=== PATIENT | male | born 1930 | race Hispanic/Latino ===

== ENCOUNTER 2018-01-21 15:05 | Inpatient (IN) | payer MEDICARE, OTHER ==
[~2018-01-21] VITALS: Ht 170.2 cm; Wt 71.2 kg
[2018-01-21] MEDS ORDERED: MULTIVITAMINS- 12 INJECTION 10 ML, FOLIC ACID MDV 5 MG, THIAMINE HCL INJ 100 MG in SODI... IV ONE (15:15)
[2018-01-21] MEDS ORDERED: DIATRIZOATE MEGL/DIATRIZOA SOD 30 ML BTL PO ONE (15:39)
[2018-01-21 16:07] LABS: BASOPHILS % 0.5 % (0.0-1.0); EOSINOPHILS # (AUTO) 0.1 (0.0-0.4); HEMATOCRIT 39.1 % (38.2-49.6); HEMOGLOBIN 13.5 g/dL (14.0-18.0); LYMPHOCYTES # (AUTO) 1.5 (1.0-3.2); LYMPHOCYTES % 18.3 % (18.0-39.1); MEAN CORPUSCULAR HGB CONC 34.5 g/dL (31-35); MEAN CORPUSCULAR VOLUME 89.7 fL (81-99); MONOCYTES # (AUTO) 0.8 (0.2-0.8); MONOCYTES % 9.3 % (4.4-11.3); NEUTROPHILS # (AUTO) 5.7 (2.1-6.9); NEUTROPHILS % 70.4 % (38.7-80.0); PLATELET COUNT 191 x10e3/uL (140-360); RED BLOOD COUNT 4.36 x10e6/uL (4.3-5.7); RED CELL DISTRIBUTION WIDTH 13.4 % (11.7-14.4)
[2018-01-21 16:18] LABS: INR 1.23; PROTHROMBIN TIME 14.6 seconds (11.9-14.5)
[2018-01-21 16:19] LABS: PARTIAL THROMBOPLASTIN TIME 33.7 seconds (23.8-35.5)
[2018-01-21 16:29] LABS: ALANINE AMINOTRANSFERASE 10 IU/L (0-55); ALBUMIN 4.1 g/dL (3.5-5.0); ALKALINE PHOSPHATASE 86 IU/L (40-150); AMYLASE 168 U/L (25-125); ANION GAP 15.3 mmol/L (8-16); BLOOD UREA NITROGEN 7 mg/dL (7-26); BUN/CREATININE RATIO 6 (6-25); CALCIUM 9.9 mg/dL (8.4-10.2); CARBON DIOXIDE 24 mmol/L (22-29); CHLORIDE 93 mmol/L (98-107); CREATINE KINASE 40 IU/L (30-200); CREATININE, SERUM 1.12 mg/dL (0.72-1.25); EST GLOMERULAR FILTRATION RATE > 60 ML/MIN (60-); GLUCOSE 112 mg/dL (74-118); LIPASE 314 U/L (8-78); MAGNESIUM 2.1 MG/DL (1.3-2.1); POTASSIUM 3.3 mmol/L (3.5-5.1); SODIUM 129 mmol/L (136-145)
--- NOTE | 2018-01-21 17:09 | Diagnostic Imaging Report ---
EXAMINATION: CHEST SINGLE (PORTABLE) INDICATION: Loss of appetite COMPARISON: None FINDINGS: TUBES and LINES: None. LUNGS: Lungs are well inflated. Lungs are clear. There is no evidence of pneumonia or pulmonary edema. PLEURA: No pleural effusion or pneumothorax. HEART AND MEDIASTINUM: The cardiomediastinal silhouette is unremarkable. BONES AND SOFT TISSUES: No acute osseous lesion. Soft tissues are unremarkable. UPPER ABDOMEN: No free air under the diaphragm. IMPRESSION: No acute thoracic abnormality. Signed by: Dr. Tyrese Anne M.D. on 01/21/2018 5:05 PM
--- NOTE | 2018-01-21 18:09 | Diagnostic Imaging Report ---
EXAM: CT Abdomen and Pelvis WITH contrast INDICATION: Small bowel obstruction, diverticulitis, pancreatitis, mass COMPARISON: None. TECHNIQUE: Abdomen and pelvis were scanned utilizing a multidetector helical scanner from the lung base to the pubic symphysis after administration of IV contrast. Coronal and sagittal reformations were obtained. Routine protocol was performed. Scan was performed when during portal venous phase. IV CONTRAST: 100 mL of Isovue-370 ORAL CONTRAST: Gastrografin RADIATION DOSE: Total DLP: 1000.21 mGy*cm Estimated effective dose: (DLP x 0.015 x size factor) mSv COMPLICATIONS: None FINDINGS: LINES and TUBES: None. LOWER THORAX: Moderate in size sliding hiatal hernia HEPATOBILIARY: No focal hepatic lesions. No biliary ductal dilation. GALLBLADDER: There are stones in the gallbladder. No evidence of wall thickening SPLEEN: No splenomegaly. PANCREAS: No focal masses or ductal dilatation. ADRENALS: No adrenal nodules KIDNEYS/URETERS: Kidneys enhance symmetrically. No hydronephrosis. No cystic or solid mass lesions. No stones. GI TRACT: No abnormal distention, wall thickening, or evidence of bowel obstruction. There are diverticula within the colon without evidence of diverticulitis. There are post surgical changes of appendectomy. PELVIC ORGANS/BLADDER: Unremarkable. LYMPH NODES: No lymphadenopathy. VESSELS: There is moderate atherosclerotic disease in the aorta and major arterial branches. PERITONEUM / RETROPERITONEUM: No free air or fluid. BONES: There are degenerative changes in the lumbar spine. SOFT TISSUES: Unremarkable. IMPRESSION: 1. No evidence of acute intra-abdominal or pelvic abnormality. 2. Evidence of prior appendectomy. 3. Cholelithiasis. Signed by: Dr. Tyrese Anne M.D. on 01/21/2018 6:06 PM
[2018-01-21] MEDS ORDERED: SODIUM CHLORIDE 0.9% 50ML 50 ML ONE (18:13)
[2018-01-21] MEDS ORDERED: IOPAMIDOL 370 MG/ML 200 ML INFUS..BTL INJ ONE (18:13)
[2018-01-21 18:15] LABS: CLARITY,URINE CLEAR (CLEAR); COLOR,URINE STRAW (YELLOW)
[2018-01-21] MEDS ORDERED: ONDANSETRON HCL INJ 2 MG/ML VIAL IV PRN (18:15)
[2018-01-21 18:16] LABS: BILIRUBIN,URINE NEGATIVE (NEGATIVE); KETONES,URINE NEGATIVE (NEGATIVE); LEUKOCYTE ESTERASE ,URINE NEGATIVE (NEGATIVE); NITRITE,URINE NEGATIVE (NEGATIVE); PROTEIN,URINE DIPSTICK NEGATIVE (NEGATIVE); URINE UROBILINOGEN 0.2 mg/dL (0.2 - 1)
[2018-01-21 18:30] LABS: BACTERIA,URINE FEW /HPF; EPITHELIAL CELLS,URINE MODERATE /LPF
[2018-01-21] MEDS: LORAZEPAM INJ 2 MG/ML VIAL IV PRN (19:36)
[2018-01-21] MEDS: MULTIVITAMINS- 12 INJECTION 10 ML in SODIUM CHLORIDE 0.9% 1000ML 1,000 ML IV SCH (19:37)
[2018-01-21 21:00] VITALS: BP 151/85
[2018-01-21] MEDS ORDERED: FAMOTIDINE20 MG PO (21:35)
[2018-01-21] MEDS ORDERED: LEVOTHYROXINE100 MC1 IV (21:35)
[2018-01-21] MEDS ORDERED: QUETIAPINE FUMA25 MG (21:35)
[2018-01-21] MEDS ORDERED: NEXIUM20 MG (21:35)
[2018-01-21 21:36] VITALS: BP 151/85
[2018-01-22 01:54] VITALS: BP 132/76
[2018-01-22] MEDS: LORAZEPAM INJ 2 MG/ML VIAL IV PRN (02:20)
[2018-01-22] MEDS: MULTIVITAMINS- 12 INJECTION 10 ML in SODIUM CHLORIDE 0.9% 1000ML 1,000 ML IV SCH ×3 (04:21→20:51)
[2018-01-22] MEDS ORDERED: MULTIVITAMINS INJECTION ONE (05:23)
[2018-01-22 05:33] VITALS: BP 173/86
[2018-01-22 06:27] LABS: BASOPHILS % 0.5 % (0.0-1.0); EOSINOPHILS # (AUTO) 0.1 (0.0-0.4); EOSINOPHILS % 1.3 % (0.0-6.0); HEMATOCRIT 35.2 % (38.2-49.6); HEMOGLOBIN 12.3 g/dL (14.0-18.0); LYMPHOCYTES # (AUTO) 0.9 (1.0-3.2); LYMPHOCYTES % 15.8 % (18.0-39.1); MEAN CORPUSCULAR HEMOGLOBIN 31.1 pg (28-32); MEAN CORPUSCULAR HGB CONC 34.9 g/dL (31-35); MEAN CORPUSCULAR VOLUME 89.1 fL (81-99); MONOCYTES # (AUTO) 0.6 (0.2-0.8); MONOCYTES % 10.2 % (4.4-11.3); NEUTROPHILS # (AUTO) 3.9 (2.1-6.9); NEUTROPHILS % 71.8 % (38.7-80.0); PLATELET COUNT 152 x10e3/uL (140-360); RED BLOOD COUNT 3.95 x10e6/uL (4.3-5.7); RED CELL DISTRIBUTION WIDTH 13.3 % (11.7-14.4)
[2018-01-22 06:54] LABS: ALANINE AMINOTRANSFERASE 9 IU/L (0-55); ALBUMIN 3.3 g/dL (3.5-5.0); ALKALINE PHOSPHATASE 67 IU/L (40-150); AMYLASE 124 U/L (25-125); ANION GAP 11.9 mmol/L (8-16); BLOOD UREA NITROGEN 6 mg/dL (7-26); BUN/CREATININE RATIO 7 (6-25); CALCIUM 9.1 mg/dL (8.4-10.2); CARBON DIOXIDE 23 mmol/L (22-29); CHLORIDE 100 mmol/L (98-107); CHOL/HDL RATIO 2.1 (3.9-4.7); CHOLESTEROL 161 MD/DL (0-199); CREATININE, SERUM 0.83 mg/dL (0.72-1.25); EST GLOMERULAR FILTRATION RATE > 60 ML/MIN (60-); GLUCOSE 91 mg/dL (74-118); HDL CHOLESTEROL 76 MG/DL (40-60); LDL CHOLESTEROL 75 MG/DL (60-130); LIPASE 187 U/L (8-78); POTASSIUM 3.9 mmol/L (3.5-5.1); SODIUM 131 mmol/L (136-145); TRIGLYCERIDES 49 MG/DL (0-149)
[2018-01-22 07:19] LABS: FREE T4 (FREE THYROXINE) 1.18 ng/dL (0.9-1.8); THYROID STIMULATING HORMONE 1.743 uIU/mL (0.350-4.940)
[2018-01-22 08:01] VITALS: BP 186/90
--- NOTE | 2018-01-22 08:03 | Diagnostic Imaging Report ---
PROCEDURE:GALLBLADDER ULTRASOUND COMPARISON:[facility], CT, CT ABDOMEN/PELVIS W, 01/21/2018, 17:00. INDICATIONS:RUQ PAIN Technique:Orellana scale and color Doppler ultrasound gallbladder FINDINGS: Imaged portions of the inferior vena cava, abdominal aorta, pancreas and right kidney are unremarkable. Right liver span 11.3 cm. Diffusely increased echotexture with a smooth liver margin. Portal vein diameter 0.9 cm; normal flow direction. 1.7 x 1.6 x 2 cm stone at the gallbladder antrum. No pericholecystic fluid. Wall thickness 0.4 cm. Common bile duct diameter 1 cm; no intrahepatic bile duct dilation. No sonographic Frazier sign. CONCLUSION: 1. Cholelithiasis without sonographic evidence of acute cholecystitis. 2. Mild common bile duct dilation may reflect choledocholithiasis in the appropriate context. 3. Hepatic steatosis. Dictated by: Paul Mcmillan M.D. on 01/22/2018 at 8:06 Electronically approved by: Paul Mcmillan M.D. on 01/22/2018 at 8:06
[2018-01-22] MEDS: THIAMINE HCL INJ 100 MG/ML 2ML VIAL IV SCH (09:00)
[2018-01-22] MEDS: LABETALOL HCL 5 MG/ML 20ML VIAL IV PRN ×2 (10:45→12:30)
[2018-01-22] MEDS: PANTOPRAZOLE 40 MG 10ML VIAL IV SCH ×2 (12:30→20:29)
[2018-01-22 14:22] VITALS: BP 150/90
[2018-01-22 15:58] VITALS: BP 197/87
--- NOTE | 2018-01-22 16:29 | Operative Report ---
DATE OF PROCEDURE: January 22, 2018 REFERRING PHYSICIAN: Dr. Gerald Garcia. PROCEDURE PERFORMED: Esophagogastroduodenoscopy with esophageal dilatation over a wire and biopsies. INDICATIONS FOR ESOPHAGOGASTRODUODENOSCOPY: Dysphagia. MEDICATION: Patient was done under MAC. Please see anesthesiologist's note. PROCEDURE: With the patient in the left lateral decubitus position, the flexible fiberoptic Olympus gastroscope was introduced into the esophagus under direct visualization without any difficulty. There was some patchy erythema noted in the distal esophagus. Patient is status post esophagectomy with gastric polyp, and the anastomosis was noted at 27 cm from the incisors. The scope was then advanced into the stomach. Mucosa overlying the antrum and the body revealed some diffuse erythema and low-grade to moderate edema, and biopsies were obtained and sent to stain for H. pylori. Pylorus was intubated with ease, and the scope was advanced all the way to the 2nd portion of the duodenum. The scope was then withdrawn slowly. Mucosa overlying the proximal 2nd portion and the duodenal bulb appeared to be within normal limits. The scope was then withdrawn back into the stomach and retroflexed, and mucosa overlying the fundus appeared to be within normal limits. The scope was then straightened out, and the anastomosis was then dilated to a size 17 Savary over a wire. Patient tolerated the procedure well. IMPRESSION: 1. Distal esophagitis. 2. Status post esophagectomy with gastric polyp. 3. Anastomosis dilated to a size 17 Savary over a wire. 4. Gastritis biopsied. Biopsies sent to stain for H. pylori. PLAN: Follow up histology. Initiate Protonix 40 mg 1 p.o. q.a.m. a.c. Job#: [id number] EV cc:GERALD GARCIA MD
[2018-01-22] MEDS ORDERED: PROPOFOL IV EMULSION 10 MG/ML 50 ML VIAL ONE (17:05)
[2018-01-22] MEDS ORDERED: MIDAZOLAM HCL 2 MG/2 ML VIAL ONE (17:43)
--- NOTE | 2018-01-22 18:59 | History and Physical ---
PRIMARY CARE PHYSICIAN: Dr. Smith CHIEF COMPLAINT: Unable to swallow. HISTORY OF PRESENT ILLNESS: An 87-year-old man with a history of esophageal cancer about 11 years ago, who had a resection of the mass at that time. No chemo was received. The patient continued to drink alcohol about 4 beers a day. Now, having difficulty swallowing. Came to the hospital and underwent EGD and esophageal dilatation by Dr. Villa for his dysphagia. Now, he is feeling better. Found to have distal esophagitis. He is admitted for further evaluation and management. PAST MEDICAL HISTORY: Esophageal cancer about 11 years ago, status post resection without any chemotherapy, hypertension, alcoholism about 4 beers a day. PAST SURGICAL HISTORY: Appendectomy, esophageal mass removal. ALLERGIES: PER ELECTRONIC MEDICAL RECORD. FAMILY HISTORY/SOCIAL HISTORY: Patient is . He has 4 children. Drinks alcohol everyday of about 4 beers a day per his . 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 No cigarettes or illicits. MEDICATIONS: Per electronic medical record. REVIEW OF SYSTEMS: Unreliable. PHYSICAL EXAMINATION VITAL SIGNS: Have been reviewed. GENERAL: A tired-appearing man resting in bed. HEENT: Anicteric. CARDIOVASCULAR: Normal S1 and S2. LUNGS: Moderate breath sounds. ABDOMEN: Soft, nontender and nondistended. He has a scar on the abdominal wall. EXTREMITIES: No edema or calf tenderness. NEUROLOGICAL: Alert. He moves all extremities. SKIN: Dry. PSYCHIATRIC: Flat affect. LABS: Reviewed. MEDICATIONS: Reviewed. ASSESSMENT: An 87-year-old man with: 1. Distal esophagitis. 2. Dysphagia: Status post esophagogastroduodenoscopy and esophageal dilatation. 3. Gastric polyp. 4. Gastritis. 5. Cholelithiasis. 6. Hepatic steatosis. 7. Hypertension. 8. Gastroesophageal reflux disease. 9. Alcoholism. PLAN 1. He is status post esophageal dilatation. Will continue PPI for esophagitis and gastritis. 2. Cholelithiasis. Follow up outpatient. No surgery is indicated at this time. 3. tool maintenance worker for counseling and Alcoholics Anonymous resources. 4. Continue Synthroid. 5. Follow up for gastric polyp biopsy results with Dr. Villa. 6. Control blood pressure. His blood pressure is currently uncontrolled. Will start him on antihypertensive medications with labetalol 100 mg q.12 h. 7. Will use Valium p.r.n. for any withdrawal symptoms and alcohol withdrawal symptoms. Will use lorazepam IV for any alcohol withdrawal symptoms. 8. Prophylaxis. Will use PPI and will use SCD. 9. Disposition. Monitor closely. tool maintenance worker to claims counsel him on resources. 10. Continue thiamine and multivitamins in a patient with alcoholism. Job#: [id number] [place]
[2018-01-22 20:00] VITALS: BP 183/79
[2018-01-22] MEDS: LABETALOL HCL 100 MG TAB PO SCH ×2 (20:29→20:38)
[2018-01-22] MEDS ORDERED: FAMOTIDINE 20 MG TAB PO SCH (21:00)
[2018-01-22] MEDS ORDERED: HYDRALAZINE HCL 20 MG/ML VIAL IV PRN (21:15)
[2018-01-22] MEDS ORDERED: ACETAMINOPHEN 325 MG TAB PO PRN (21:15)
[2018-01-22] MEDS ORDERED: ONDANSETRON HCL INJ 2 MG/ML VIAL IV PRN (21:15)
[2018-01-23] VITALS: BP 142/67
[2018-01-23 04:00] VITALS: BP 181/82
[2018-01-23 04:33] LABS: BASOPHILS % 0.2 % (0.0-1.0); EOSINOPHILS % 0.3 % (0.0-6.0); HEMATOCRIT 36.8 % (38.2-49.6); HEMOGLOBIN 11.9 g/dL (14.0-18.0); LYMPHOCYTES # (AUTO) 0.7 (1.0-3.2); LYMPHOCYTES % 8.4 % (18.0-39.1); MEAN CORPUSCULAR HEMOGLOBIN 31.1 pg (28-32); MEAN CORPUSCULAR HGB CONC 32.3 g/dL (31-35); MEAN CORPUSCULAR VOLUME 96.1 fL (81-99); MONOCYTES # (AUTO) 0.7 (0.2-0.8); NEUTROPHILS # (AUTO) 7.2 (2.1-6.9); NEUTROPHILS % 82.8 % (38.7-80.0); PLATELET COUNT 161 x10e3/uL (140-360); RED BLOOD COUNT 3.83 x10e6/uL (4.3-5.7); RED CELL DISTRIBUTION WIDTH 13.8 % (11.7-14.4)
[2018-01-23 04:51] LABS: ANION GAP 11.8 mmol/L (8-16); BLOOD UREA NITROGEN 5 mg/dL (7-26); BUN/CREATININE RATIO 6 (6-25); CALCIUM 8.8 mg/dL (8.4-10.2); CARBON DIOXIDE 23 mmol/L (22-29); CHLORIDE 103 mmol/L (98-107); CREATININE, SERUM 0.77 mg/dL (0.72-1.25); EST GLOMERULAR FILTRATION RATE > 60 ML/MIN (60-); GLUCOSE 103 mg/dL (74-118); MAGNESIUM 1.7 MG/DL (1.3-2.1); POTASSIUM 3.8 mmol/L (3.5-5.1); SODIUM 134 mmol/L (136-145)
[2018-01-23 08:31] VITALS: BP 145/98
[2018-01-23] MEDS: THIAMINE HCL INJ 100 MG/ML 2ML VIAL IV SCH (09:00)
[2018-01-23] MEDS: PANTOPRAZOLE 40 MG 10ML VIAL IV SCH (09:00)
[2018-01-23] MEDS: LABETALOL HCL 100 MG TAB PO SCH (09:00)
[2018-01-23] MEDS ORDERED: LEVOTHYROXINE SODIUM 100 MCG/VIAL IV SCH (09:00)
[2018-01-23] MEDS ORDERED: LORAZEPAM1 MG PO (09:33)
[2018-01-23] MEDS ORDERED: LABETALOL HCL100 MG PO (09:33)
[2018-01-23] MEDS ORDERED: THIAMINE HCL100 MG PO (09:33)
[2018-01-23] MEDS ORDERED: PANTOPRAZOLE SO40 MG PO (09:35)
[2018-01-23 12:34] VITALS: BP 126/61
--- NOTE | 2018-01-23 19:03 | Discharge Summary ---
ADMISSION DIAGNOSES 1. Distal esophagitis. 2. Dysphagia. 3. Gastric polyp. 4. Gastritis. 5. Cholelithiasis. 6. Hepatic steatosis. 7. Hypertension. 8. Gastroesophageal reflux disease. 9. Alcoholism. DISCHARGE DIAGNOSES 1. Distal esophagitis. 2. Dysphagia. 3. Gastric polyp. 4. Gastritis. 5. Cholelithiasis. 6. Hepatic steatosis. 7. Hypertension. 8. Gastroesophageal reflux disease. 9. Alcoholism. HISTORY: Patient has a history of esophageal cancer about 11 years ago, status post resection without any chemotherapy, hypertension, and alcoholism of about 4 beers a day. Surgical history of appendectomy and esophageal mass removal. HOSPITAL COURSE: An 87-year-old male with a history of esophageal cancer about 11 years ago, status post resection has continued to drink alcohol about 4 beers a day, and is now having difficulty swallowing. He came to the hospital and underwent EGD and esophageal dilation by Dr. Villa. During the EGD, the patient was found to have distal esophagitis and gastritis. Biopsies were sent for H. pylori. The patient to size 17 during the EGD. Chest x-ray on admission showed no acute thoracic abnormality. CT of the abdomen showed no evidence of acute intra-abdominal or pelvic abnormality. Prior appendectomy and cholelithiasis. Ultrasound of the gallbladder showed cholelithiasis without evidence of acute cholecystitis. Common bile duct dilation may reflect choledocholithiasis appropriate context and hepatic steatosis. The patient had a urine culture which was negative. After dilation and EGD, the patient feels much better. He was started on PPI, as well as a banana bag during hospitalization. He was given lorazepam for anxiety as needed due to possible withdrawal symptoms. The patient and were instructed to follow up with Dr. Villa in 1-2 weeks, as well as cessation of alcohol consumption. The patient says now that he is able to swallow better he will eat more. He was discharged home on labetalol q.12 h., lorazepam p.r.n., Protonix 40 mg before breakfast, and thiamine 100 mg daily. He was instructed not to mix his medications with his alcohol consumption. The patient agrees that he will not do that. Both the patient and agree with discharge plan and are ready to go home. DICTATED BY BREE AMADO, CELINE GERALD RAZA MD Job#: [id number] [place]
== END 2018-01-23 13:30 | disposition home or self-care (01) | DRG 392 ==
LOC: ER 15:05 → ERHOLD 18:20 → MED/SURG3 20:04
PROVIDERS: ADMIT Internal Medicine; ATTEND Internal Medicine
PROC: 0D738ZZ Dilation of Lower Esophagus, Via Natural or Artificial Opening Endoscopic (ICD-10-PCS; principal; 2018-01-22 11:23)
PROC: 0DB78ZX Excision of Stomach, Pylorus, Via Natural or Artificial Opening Endoscopic, Diagnostic (ICD-10-PCS; 2018-01-22 11:23)
DX: K20.8 Other esophagitis (principal); F10.959 Alcohol use, unspecified with alcohol-induced psychotic disorder, unspecified; E87.1 Hypo-osmolality and hyponatremia; K52.81 Eosinophilic gastritis or gastroenteritis; Y90.9 Presence of alcohol in blood, level not specified; E88.89 Other specified metabolic disorders; K76.9 Liver disease, unspecified; K21.0 Gastro-esophageal reflux disease with esophagitis; F10.20 Alcohol dependence, uncomplicated; K29.20 Alcoholic gastritis without bleeding; Z85.01 Personal history of malignant neoplasm of esophagus; K80.70 Calculus of gallbladder and bile duct without cholecystitis without obstruction; K31.7 Polyp of stomach and duodenum
CPT/HCPCS: 36415; 43239; 43248; 43450; 71045; 74177; 76705; 80048; 80053; 80061; 80320; 81001; 82150; 82550; 82553; 83036; 83690; 83735; 83880; 84439; 84443; 84484; 85025; 85610; 85730; 87086; 88305; 88312; 93005; 99284; J0360; J2060; J2250; J3411; J7030; Q9967

== ENCOUNTER 2019-01-11 20:49 | Emergency (ER) | payer MEDICARE, OTHER ==
[~2019-01-11] VITALS: Ht 170.2 cm; Wt 71.2 kg
[~2019-01-11 20:49] MED LIST: FAMOTIDINE20 MG PO; LABETALOL HCL100 MG PO; LEVOTHYROXINE100 MC1 IV; LORAZEPAM1 MG PO; NEXIUM20 MG; PANTOPRAZOLE SO40 MG PO; QUETIAPINE FUMA25 MG; THIAMINE HCL100 MG PO
[2019-01-11 21:53] LABS: BASOPHILS % 0.6 % (0.0-1.0); EOSINOPHILS # (AUTO) 0.2 (0.0-0.4); EOSINOPHILS % 3.8 % (0.0-6.0); HEMATOCRIT 33.9 % (38.2-49.6); HEMOGLOBIN 10.8 g/dL (14.0-18.0); LYMPHOCYTES # (AUTO) 1.7 (1.0-3.2); LYMPHOCYTES % 26.4 % (18.0-39.1); MEAN CORPUSCULAR HEMOGLOBIN 29.8 pg (28-32); MEAN CORPUSCULAR HGB CONC 31.9 g/dL (31-35); MEAN CORPUSCULAR VOLUME 93.6 fL (81-99); MONOCYTES # (AUTO) 0.6 (0.2-0.8); MONOCYTES % 8.8 % (4.4-11.3); NEUTROPHILS # (AUTO) 3.7 (2.1-6.9); NEUTROPHILS % 59.6 % (38.7-80.0); PLATELET COUNT 185 x10e3/uL (140-360); RED BLOOD COUNT 3.62 x10e6/uL (4.3-5.7); RED CELL DISTRIBUTION WIDTH 14.8 % (11.7-14.4)
[2019-01-11 22:13] LABS: ALBUMIN 3.4 g/dL (3.5-5.0); ALBUMIN/GLOBULIN RATIO 0.9 (0.8-2.0); CALCIUM 9.3 mg/dL (8.4-10.2); CREATININE, SERUM 1.17 mg/dL (0.72-1.25)
[2019-01-11 23:35] LABS: BILIRUBIN,URINE NEGATIVE (NEGATIVE); CLARITY,URINE CLEAR (CLEAR); COLOR,URINE YELLOW (YELLOW); KETONES,URINE NEGATIVE (NEGATIVE); LEUKOCYTE ESTERASE ,URINE NEGATIVE (NEGATIVE); NITRITE,URINE NEGATIVE (NEGATIVE); PROTEIN,URINE DIPSTICK TRACE (NEGATIVE); URINE UROBILINOGEN 0.2 mg/dL (0.2 - 1)
[2019-01-11 23:52] LABS: AMORPHOUS SEDIMENT,URINE FEW (FEW); EPITHELIAL CELLS,URINE FEW /LPF; RBC,URINE 0-5 /HPF (0-5); WBC,URINE (MAN) 0-5 /HPF (0-5)
[2019-01-12 00:10] VITALS: BP 160/64
== END 2019-01-12 00:18 | disposition home or self-care (01) ==
LOC: ER 20:49
DX: R19.7 Diarrhea, unspecified (principal); R53.1 Weakness; F03.90 Unspecified dementia, unspecified severity, without behavioral disturbance, psychotic disturbance, mood disturbance, and anxiety; E03.9 Hypothyroidism, unspecified; K21.9 Gastro-esophageal reflux disease without esophagitis
CPT/HCPCS: 36415; 80053; 81001; 85025; 99283